=== PATIENT | female | born 1990 | race Caucasian/White ===

== ENCOUNTER 2023-05-10 13:45 | Outpatient (CLI) | payer BC, SELFPAY | END 2023-05-10 13:46 | disposition home or self-care (01) | LOC: LONREF 13:46 | PROVIDERS: PCP Family Medicine; Visit Provider Obstetrics & Gynecology | DX: Z01.419 Encounter for gynecological examination (general) (routine) without abnormal findings (principal); R53.83 Other fatigue | CPT/HCPCS: 83520; 84443 ==

== ENCOUNTER 2023-07-12 17:04 | Outpatient (CLI) | payer BC, SELFPAY | END 2023-07-12 17:05 | disposition home or self-care (01) | LOC: NFLDREF 07-15 13:48 | PROVIDERS: PCP Family Medicine; Referring Provider Family Medicine; Visit Provider Nurse Practitioner Family | DX: R30.0 Dysuria (principal); Z20.2 Contact with and (suspected) exposure to infections with a predominantly sexual mode of transmission | CPT/HCPCS: 87491; 87591 ==

== ENCOUNTER 2023-10-11 09:52 | Emergency (ER) | payer BC, SELFPAY ==
[2023-10-11] VITALS (19 sets, daily range): BP systolic 116–135; BP diastolic 86–96; PULSE 85–101; RESP 18; TEMP 36.4; O2SAT 97–100; BMI 25.5
--- NOTE | 2023-10-11 10:23 | ED.ABDPAIN ---
HPI - Abdominal Pain General Time Seen by Provider: 10:23 Date Seen: 10/11/23 Chief Complaint: Abdominal Pain Stated Complaint: Back/abdominal pain Time Seen by Provider: 10/11/23 10:22 Source: patient and RN notes reviewed Mode of arrival: ambulatory Limitations: no limitations History of Present Illness HPI narrative: This 32-year-old female was referred by clinic to the ER for epigastric pain. This pain has been intermittent for about 2 months, has been present now since last night however. She notes that the pain does radiate to her back. The pain has persisted since about 9:00 a.m. last night. Alcohol use to make her symptoms worse, quit drinking alcohol about 2 weeks ago. She did eat dinner last night at 6:00 p.m., had nausea and vomiting about 730 last night. Denies any heartburn or reflux symptoms to me, states her gallbladder is gone. She has an IUD in. She has had no diarrhea, no constipation, no dark tarry stools or blood in stools. This pain is the worst that she has had thus far. She tried some ibuprofen around 6:00 a.m.. MD elicited complaint: abdominal pain Related Data Hx Last Menstrual Period: Has IUD in place Patient : No Home Medications Medication Instructions Recorded Confirmed Vitamin D PO 11/28/22 07/12/23 clonidine HCl 0.1 mg tablet 0.1 mg PO QPM 07/12/23 07/12/23 levomilnacipran 20 mg capsule,24 20 mg PO DAILY 07/12/23 07/12/23 hr,extended release (Fetzima) Previous Rx's Medication Instructions Recorded sertraline 100 mg tablet 100 mg PO QDAY #90 tabs 11/28/22 valacyclovir 1 gram tablet 1,000 mg PO QDAY #90 tabs 05/10/23 sertraline 50 mg tablet 50 mg PO QDAY #90 tabs 05/18/23 trazodone 50 mg tablet 50 mg PO QDAY #90 tabs 05/18/23 cefixime 400 mg capsule 800 mg (2 x 400 mg) PO ONCE #2 caps 07/12/23 omeprazole 40 mg capsule,delayed 40 mg PO DAILY #14 caps 10/11/23 release ondansetron 4 mg disintegrating 4 mg PO Q6H PRN nausea and 10/11/23 tablet vomiting #20 tabs Allergies Allergy/AdvReac Type Severity Reaction Status Date / Time No Known Drug Allergies Allergy Verified 07/12/23 16:53 Review of Systems Status of ROS Reports: 6 or more systems reviewed and unremarkable except as noted in History and below [facility] Medical History History of vaginal delivery Vitamin D deficiency ?E55.9 - Vitamin D deficiency, unspecified (ICD-10) Surgical History History of wisdom tooth extraction ?K08.409 - Partial loss of teeth, unspecified cause, unspecified class (ICD-10) Status post cholecystectomy (2020) ?Z90.49 - Acquired absence of other specified parts of digestive tract (ICD-10) Status post adenoidectomy ?Z90.89 - Acquired absence of other organs (ICD-10) History of tympanostomy tube placement ?Z96.22 - Myringotomy tube(s) status (ICD-10) Family History Mother High cholesterol Diabetes High blood pressure Grandmother DVT (deep venous thrombosis) Other Alzheimers disease Social History Narrative: Occupation: Respite care, foster caregiver Highest level of school completed/degree received: high school graduate Smoking Status: Never smoker Do you use any of these nicotine containing products: None Second hand tobacco smoke exposure: No How often do you have a drink containing alcohol: monthly or less How many standard drinks containing alcohol do you have on a typical day: 1 or 2 How often do you have six or more drinks on one occasion: Never AUDIT-C Alcohol total score: 1 Non-prescribed substance use: denies use Little interest or pleasure in doing things: nearly every day Feeling down, depressed, or hopeless: more than half the days Do you think of yourself as: straight/heterosexual Gender Identity: female Are you currently sexually active: Yes Are you using contraception or practicing any form of control: Yes service: No Exam Const: Vital Signs, click to edit/add: Vital Signs - 24 hr 10/11/23 10:04 10/11/23 10:18 10/11/23 10:30 Temperature 97.6 F Pulse Rate 101 H 98 Pulse Rate [Pulse Oximeter] 95 Respiratory Rate 18 Blood Pressure Blood Pressure [Ri ght Upper Arm] 135/96 H Pulse Oximetry 99 99 98 Oxygen Delivery Me thod Room Air 10/11/23 10:31 Temperature Pulse Rate 101 H Pulse Rate [Pulse Oximeter] Respiratory Rate Blood Pressure 122/94 H Blood Pressure [Ri ght Upper Arm] Pulse Oximetry 99 Oxygen Delivery Me thod This 32-year-old female who is alert, interactive, no apparent distress but looks like she does not feel well. Symmetrical facial function, sclera clear, normal conjugate gaze. Able to speak in complete sentences. Sits up easily, lungs are clear, good air entry, no wheezing or crackles. CV regular rate and rhythm, no murmur, normal S1-S2, no S3-S4. Abdomen is soft, normal bowel sounds but does have epigastric abdominal pain. I feel no organomegaly or masses, she has no rebound or guarding at this time. She was ambulatory into the ED of her own accord. Skin visualized without any rash, note no jaundice. Documenting provider has reviewed patient's vital signs: yes Course Course ED Course: Patient has epigastric abdominal pain. Differential certainly could be pancreatitis, ulcer, gastric or duodenal issues. Doubtful that she has any small bowel obstruction as she has had no recurrent nausea or vomiting. Will obtain CT of her abdomen and pelvis, obtain full complement of labs. Will initiate a L of IV fluids, 4 mg IV Zofran, 15 mg IV Toradol for pain but will also give her 40 mg IV Protonix. Doubtful based on clinical examination that she has an acute surgical abdomen but CT imaging in the labs will certainly help differentiate any process. Reevaluation(s) Time of Reevaluation #1: 12:08 Reevaluation #1: Have reviewed with patient her CT findings and her lab reports. She is feeling better after the medications given. She does admit that she will intermittently sometimes have diarrhea after her gallbladder being out. We did discuss the findings of the liquid in the colon. It is possible that she has a new gastroenteritis given the small bowel findings on the CT, mild elevated liver enzymes. She is aware that I did send off an acute viral hepatitis panel. As far as drinking, she did not drink much, just socially. Thus, doubt the liver enzymes are attributed to from alcohol. Did review the incidental finding in the left urinary system with her, she will need outpatient follow-up with Urology. Urinalysis is showing no evidence of infection. Consultations Consultation #1: Did briefly review this case with our surgeon on-call Dr. Harrison. We did discuss the possibility of a de Karina common bile duct stone but there is no evidence of any dilation on the CT. She agrees with doing the viral hepatitis panel. It is possible that this is just a gastroenteritis with a mild bump in the liver enzymes from the virus. Will talk to patient further about quantifying her alcohol use. At this time, if patient is feeling better, there is no strong inclination to do an MRCP to look for a common bile duct stone. If patient were worsening or having increased liver enzyme changes, this may need to be considered. Will re-evaluate patient at this time, contact surgeon back if needed. Time: 11:44 Vital Signs Vital signs: Initial Vital Signs Temperature 97.6 F 10/11/23 10:04 Temperature Source Temporal Artery Scan 10/11/23 10:04 Pulse Rate 95 10/11/23 10:04 Pulse Rhythm Regular 10/11/23 10:04 Respiratory Rate 18 10/11/23 10:04 Blood Pressure 135/96 H 10/11/23 10:04 Blood Pressure Mean 109 H 10/11/23 10:04 Blood Pressure Position Supine 10/11/23 10:04 Pulse Oximetry 99 10/11/23 10:04 Oxygen Delivery Method Room Air 10/11/23 10:04 Vital Signs Temperature 97.6 F 10/11/23 10:04 Pulse Rate 95 10/11/23 10:04 Respiratory Rate 18 10/11/23 10:04 Blood Pressure 135/96 H 10/11/23 10:04 Pulse Oximetry 99 10/11/23 10:04 Oxygen Delivery Method Room Air 10/11/23 10:04 Temperature 97.6 F 10/11/23 10:04 Pulse Rate 101 H 10/11/23 10:31 Respiratory Rate 18 10/11/23 10:04 Blood Pressure 122/94 H 10/11/23 10:31 Pulse Oximetry 99 10/11/23 10:31 Oxygen Delivery Method Room Air 10/11/23 10:04 Medications Administered Medications: Generic Name Dose Route Start Last Admin Trade Name Freq PRN Reason Stop Dose Admin Sodium Chloride 1,000 mls @ 500 mls/hr 10/11/23 10:29 10/11/23 11:04 0.9 % Sodium Chloride 1000 Ml IV 10/11/23 12:28 500 mls/hr .Q2H JLUIS Administration Discontinued Medications Generic Name Dose Route Start Last Admin Trade Name Freq PRN Reason Stop Dose Admin Ketorolac Tromethamine 15 mg 10/11/23 10:10/11/23 11:11 Ketorolac 15 Mg/Ml Inj IVP 10/11/23 10:30 15 mg ONCE ONE Administration Ondansetron HCl 4 mg 10/11/23 10:29 10/11/23 11:07 Ondansetron 2 Mg/Ml Inj IVP 10/11/23 10:30 4 mg ONCE ONE Administration Pantoprazole Sodium 40 mg 10/11/23 10:10/11/23 11:08 Pantoprazole Sodium 40 Mg Inj IVP 10/11/23 10:30 40 mg ONCE ONE Administration MDM - Abdominal Pain Lab Data Attestation: I reviewed the patient's lab results. Labs: Lab Results 10/11/23 10/11/23 10/11/23 Range/Units 10:35 11:36 11:50 WBC 8.35 (4.50-11.00) K/uL RBC 4.47 (4.00-5.20) m/uL Hgb 13.9 (12.0-16.0) gm/dL Hct 40.9 (33.0-51.0) % MCV 92 (80-100) fL MCH 31 (26-34) pg MCHC 34 (32-36) gm/dL RDW Coeff of [place] 11.0 L (11.5-15.5) % Plt Count 270 (140-440) K/uL Neut % (Auto) 80.8 H (42.0-72.0) % Lymph % (Auto) 12.2 L (20-44) % Young % (Auto) 5.5 (0.0-11.0) % Eos % (Auto) 0.5 (0.0-7.0) % Baso % (Auto) 0.2 (0.0-3.0) % Neut # (Auto) 6.70 (1.7-7.0) K/uL Lymph # (Auto) 1.00 (0.90-2.90) K/uL Young # (Auto) 0.50 (0.00-0.90) K/UL Eos # (Auto) 0.04 (0.00-0.50) K/uL Baso # (Auto) 0.02 (0.00-0.30) K/uL Abs Immat Gran (auto) 0.07 (0.00-0.30) K/uL Imm/Tot Granulo (auto) 0.8 % Sodium 136 (135-149) mmol/L Potassium 4.2 (3.6-5.1) mmol/L Chloride 103 (96-114) mmol/L Carbon Dioxide 25 (20-32) mmol/L Anion Gap 8 (7-15) mEq/L BUN 10 (5-24) mg/dL Creatinine 0.7 (0.5-1.5) mg/dL Estimated Creat Clear 85.45 Estimated GFR 116 ml/min Glucose 99 (60-115) mg/dL Lactate 0.7 (0.5-1.9) mmol/L Calcium 9.2 (8.4-10.6) mg/dL Total Bilirubin 1.8 H (0.1-1.5) mg/dL Direct Bilirubin 0.5 (0.0-0.5) mg/dL AST 241 H (12-35) U/L ALT 133 H (4-35) U/L Alkaline Phosphatase 215 H (40-150) U/L C-Reactive Protein 0.9 (0.5-1.0) mg/dL Total Protein 7.9 (6.0-8.3) g/dL Albumin 4.6 (3.3-5.0) g/dL Lipase 35 (23-300) U/L HCG, Qual Negative (Negative) Urine Color Yellow (Yellow) Urine Appearance Clear (Clear) Urine pH 7.0 (5.0-8.5) Ur Specific [place] 1.010 (1.000-1.030) Urine Protein Negative (Negative) Urine Glucose (UA) Negative (Negative) Urine Ketones Negative (Negative) Urine Blood Negative (Negative) Urine Nitrite Negative (Negative) Urine Bilirubin Negative (Negative) Urine Urobilinogen 1.0 (0.2-1.0) Ur Leukocyte Esterase Negative (Negative) Urine RBC 0-2 (0-2) Urine WBC 0-2 (0-5) Ur Squamous Epith Cells Few (None-Few) Urine Bacteria Few A (None) Ethyl Alcohol < 0.01 L (0.01-0.03) % Lab Acknowledgement Test Added Imaging Data CT scan - abdomen: Attestation: I have reviewed the pertinent imaging results. Radiologist's impression: Patient: MARTHA GARCIA Facility:?[facility] Patient ID:?[id number] Site Patient ID:?[id number]. Site :?[id number] Study:?CT Abdomen/Pelvis w/ 66cc [id number] 11:01:49 AM Ordering Physician:?Kenia Byrd Final Report: INDICATION: Epigastric pain. Nausea and vomiting. TECHNIQUE: Axial images were obtained from the diaphragm to the pubic symphysis. Reformats were obtained in the coronal and sagittal plane. IV Contrast: 66 cc Isovue 370 Oral Contrast: None COMPARISON: None. FINDINGS: Lower chest: Unremarkable. Liver: Unremarkable. Normal in size and attenuation. No masses. Gallbladder and bile ducts: Status post cholecystectomy. Spleen: Unremarkable. Normal in size without mass. Pancreas: Unremarkable. No mass or inflammation. Adrenal glands: Unremarkable. No nodules. Kidneys: Slightly delayed nephrogram on the left with modest pelvocaliectasis. Left ureter decompressed. No nephrolithiasis. Vasculature: Unremarkable. GI tract: Stomach is decompressed. Slight fold thickening questioned within loops of small bowel in the left abdomen. Fluid noted within the colon. Pelvis: Anteverted uterus with intrauterine device. Trace free fluid in the pelvis. Bones: Unremarkable for age. IMPRESSION: 1. Slight fold thickening questioned within loops of small bowel in the left abdomen suggesting an enteritis. Fluid within the colon which can be seen in a diarrheal illness. 2. Slightly delayed nephrogram on the left with cystic areas in the left renal pelvis. Appearance favors mild left pelvocaliectasis and mild underlying left UPJ stenosis. Differential diagnosis includes prominent peripelvic cysts. Please note that all CT scans at this facility use dose modulation, iterative reconstruction, and/or weight-based dosing when appropriate to reduce radiation dose to as low as reasonably achievable. Dictated by Eric Doyle MD @ 10/11/2023 11:16:41 AM (Electronic Signature) Core Measures AMI core measures followed: No Discharge Plan Discharge Clinical Impression: Enteritis, Elevated liver enzymes, Abnormal abdominal CT scan, Acute epigastric pain Patient Disposition: Home, Self-Care Condition: Stable Instructions: Gastroenteritis (ED), Enteritis (ED) Additional Instructions: Use omeprazole daily for the next 1-2 weeks. Can use Zofran for recurrent nausea. If you are having significant increase in nausea, or vomiting through use of Zofran, do recommend re-evaluation in the interim. Recommend sticking to clear liquids for the next 24-48 hours. You may develop some diarrhea but if you note blood in your diarrhea or have significant increased abdominal pain, abdominal pain associated with fever, do recommend re-evaluation in the interim. Otherwise, need to follow up in clinic next week. Your liver enzymes need to be re-evaluated, recommend referral to Urology for the incidental abnormality noted on the CT scan in the left urinary system. Please bring a copy of the CT report as well as your liver enzyme levels from the ED to that follow-up with your primary care provider next week. You may resume a normal diet as you feel better. We will let you know if the acute hepatitis viral panel would be positive for anything. The working hypothesis is that you have a probable gastroenteritis which is causing a mild elevation in the liver enzymes, we do see this. It is important to make sure that the liver enzymes are coming back to normal to ensure no underlying development of other disease process. If the liver enzymes do continue to be elevated, may need further laboratory studies done as well as possible GI consultation. Activity Level: Activity as Tolerated Prescriptions: New ondansetron 4 mg tablet,disintegrating 4 mg PO Q6H PRN (Reason: nausea and vomiting) Qty: 20 0RF omeprazole 40 mg capsule,delayed release(DR/EC) 40 mg PO DAILY Qty: 14 0RF No Action Vitamin D PO Patient Comments: Pt is unsure of dose. sertraline 100 mg tablet 100 mg PO QDAY Qty: 90 3RF valacyclovir 1 gram tablet 1,000 mg PO QDAY Qty: 90 3RF clonidine HCl 0.1 mg tablet 0.1 mg PO QPM Fetzima 20 mg capsule,extended release 24 hr 20 mg PO DAILY cefixime 400 mg capsule 800 mg PO ONCE Qty: 2 0RF sertraline 50 mg tablet 50 mg PO QDAY Qty: 90 3RF trazodone 50 mg tablet 50 mg PO QDAY Qty: 90 3RF Follow Up/Referrals: Jeovany Capps MD [Primary Care Provider] - Stand Alone Forms: [employer] Info Instructions
--- NOTE | 2023-10-11 10:30 | CRLHL7_ITS ---
For Patients: As a result of the Century Cures Act, medical imaging exams and procedure reports are released immediately into your electronic medical record. You may view this report before your referring provider. If you have questions, please contact your health care provider. INDICATION: Epigastric pain. Nausea and vomiting. TECHNIQUE: Axial images were obtained from the diaphragm to the pubic symphysis. Reformats were obtained in the coronal and sagittal plane. IV Contrast: 66 cc Isovue 370 Oral Contrast: None COMPARISON: None. FINDINGS: Lower chest: Unremarkable. Liver: Unremarkable. Normal in size and attenuation. No masses. Gallbladder and bile ducts: Status post cholecystectomy. Spleen: Unremarkable. Normal in size without mass. Pancreas: Unremarkable. No mass or inflammation. Adrenal glands: Unremarkable. No nodules. Kidneys: Slightly delayed nephrogram on the left with modest pelvocaliectasis. Left ureter decompressed. No nephrolithiasis. Vasculature: Unremarkable. GI tract: Stomach is decompressed. Slight fold thickening questioned within loops of small bowel in the left abdomen. Fluid noted within the colon. Pelvis: Anteverted uterus with intrauterine device. Trace free fluid in the pelvis. Bones: Unremarkable for age. IMPRESSION: 1. Slight fold thickening questioned within loops of small bowel in the left abdomen suggesting an enteritis. Fluid within the colon which can be seen in a diarrheal illness. 2. Slightly delayed nephrogram on the left with cystic areas in the left renal pelvis. Appearance favors mild left pelvocaliectasis and mild underlying left UPJ stenosis. Differential diagnosis includes prominent peripelvic cysts. Please note that all CT scans at this facility use dose modulation, iterative reconstruction, and/or weight-based dosing when appropriate to reduce radiation dose to as low as reasonably achievable. Dictated by Eric Doyle MD @ 10/11/2023 11:16:41 AM (Electronically Signed)
[2023-10-11 10:45] LABS: Basophils Absolute Auto 0.02 K/uL (0.00-0.30); Basophils Percent Auto 0.2 % (0.0-3.0); Eosinophils Absolute Auto 0.04 K/uL (0.00-0.50); Eosinophils Percent Auto 0.5 % (0.0-7.0); Hematocrit 40.9 % (33.0-51.0); Hemoglobin* 13.9 gm/dL (12.0-16.0); Immature Granulocytes Abs Auto 0.07 K/uL (0.00-0.30); Immature Granulocytes Pct Auto 0.8 %; Lymphocytes Percent Auto 12.2 % (20-44); Mean Corpuscular HGB Conc 34 gm/dL (32-36); Mean Corpuscular Hemoglobin 31 pg (26-34); Mean Corpuscular Volume 92 fL (80-100); Monocytes Percent Auto 5.5 % (0.0-11.0); Neutrophils Percent Auto 80.8 % (42.0-72.0); Platelet Count* 270 K/uL (140-440); Red Blood Count 4.47 m/uL (4.00-5.20); White Blood Count* 8.35 K/uL (4.50-11.00)
[2023-10-11 10:46] LABS: Lactate* 0.7 mmol/L (0.5-1.9)
[2023-10-11 10:51] LABS: Slide Review Reflex No
[2023-10-11 11:03] LABS: Albumin* 4.6 g/dL (3.3-5.0); Chloride* 103 mmol/L (96-114)
[2023-10-11 11:04] LABS: HCG Qualitative Serum* Negative (Negative); Potassium* 4.2 mmol/L (3.6-5.1); Sodium* 136 mmol/L (135-149)
[2023-10-11] MEDS: 0.9 % SODIUM CHLORIDE 1000 ml 1,000 ML 500 ML IV (11:04)
[2023-10-11 11:06] LABS: Creatinine* 0.7 mg/dL (0.5-1.5); Est. Creatinine Clearance* 85.45; Estimated Glomerular Filt Rate 116 ml/min
[2023-10-11 11:07] LABS: Alanine Aminotransferase* 133 U/L (4-35); Alkaline Phosphatase* 215 U/L (40-150); Anion Gap 8 mEq/L (7-15); Aspartate Amino Transferase* 241 U/L (12-35); Bilirubin Direct* 0.5 mg/dL (0.0-0.5); Bilirubin Total* 1.8 mg/dL (0.1-1.5); Blood Urea Nitrogen* 10 mg/dL (5-24); Calcium* 9.2 mg/dL (8.4-10.6); Carbon Dioxide* 25 mmol/L (20-32); Glucose* 99 mg/dL (60-115); Lipase* 35 U/L (23-300); Total Protein* 7.9 g/dL (6.0-8.3)
[2023-10-11] MEDS: ONDANSETRON 2 MG/ML inj 4 MG IVP (11:07)
[2023-10-11] MEDS: PANTOPRAZOLE SODIUM 40 MG INJ IVP (11:08)
[2023-10-11 11:09] LABS: C Reactive Protein* 0.9 mg/dL (0.5-1.0); Ethanol* < 0.01 % (0.01-0.03)
[2023-10-11] MEDS: KETOROLAC 15 MG/ML inj IVP (11:11)
[2023-10-11 11:50] LABS: Appearance Urine Clear (Clear); Bilirubin Urine Negative (Negative); Blood Urine Negative (Negative); Color Urine Yellow (Yellow); Glucose Urine Negative (Negative); Ketones Urine Negative (Negative); Leukocyte Esterase Urine Negative (Negative); Nitrite Urine Negative (Negative); Protein Urine Negative (Negative)
[2023-10-11 11:55] LABS: Bacteria Urine Few; RBC Urine 0-2 (0-2); Squamous Epithelial Cell Urine Few (None-Few); WBC Urine 0-2 (0-5)
[2023-10-13 12:25] LABS: Hep A Ab, IgM Negative (Negative); Hep B Core Ab, IgM Negative (Negative); Hep B Surface Antigen Negative (Negative); Hep C Ab by CIA Index 0.14 IV; Hep C Ab by CIA Interp Negative (Negative)
== END 2023-10-11 12:53 | disposition home or self-care (01) ==
PROVIDERS: Emergency Provider Family Medicine; PCP Family Medicine
DX: K52.9 Noninfective gastroenteritis and colitis, unspecified (principal); R93.89 Abnormal findings on diagnostic imaging of other specified body structures; R74.01 Elevation of levels of liver transaminase levels
CPT/HCPCS: 36415; 74177; 80053; 80074; 81001; 82077; 82248; 83605; 83690; 84703; 85025; 86140; 87086; 96374; 96375; 99284; 99285; C9113; J1885; J2405; J7030; Q9967

== ENCOUNTER 2023-10-16 13:30 | Outpatient (CLI) | payer BC, SELFPAY | END 2023-10-16 13:31 | disposition home or self-care (01) | LOC: LKVREF 13:34 | PROVIDERS: PCP Family Medicine; Visit Provider Family Medicine | DX: R74.8 Abnormal levels of other serum enzymes (principal) | CPT/HCPCS: 80076 ==

== ENCOUNTER 2023-11-28 13:51 | Outpatient (CLI) | payer BC, SELFPAY ==
--- NOTE | 2023-11-28 14:00 | NM_ITS ---
Patient: MARTHA GARCIA Facility:?[facility] Patient ID:?[id number] Site Patient ID:?[id number]. Site :?1990 Study:?NM-Chest/Abd/Pelvis Procedure Renogram w/ Ana Luisa-11/28/2023 4:09:33 PM Ordering Physician:EUGENE LANGLEY Final Report: Indication: Left hydronephrosis Technique: Patient was injected with 10.5 mCi [id number] and underwent routine renal scintigraphic examination. 20 minutes into the examination, patient received 20 milligrams furosemide IV. Comparison: None Findings: Flow phase: Appropriate and symmetric flow phase examination bilaterally. Uptake phase: The bilateral kidneys show rapid uptake with a sharp peak of activity. Excretory phase: The bilateral kidneys demonstrate significant spontaneous excretion. At the time of diuresis, there was minimal residual radiotracer within the bilateral collecting systems. Postvoid: Essentially complete emptying bilaterally. Split differential: 51.3% left, 48.7% right. T1/2 diuresis: Could not be calculated due to spontaneous excretion. Subjective: Symmetric flow, uptake, and expiratory phase examination with no evidence of collecting system dilation or asymmetry of radiotracer clearance. Impression: Normal renal scan. Dictated by García Acevedo MD @ 12/02/2023 1:55:02 AM Signed by:?García Acevedo MD @12/02/2023 1:55:02 AM (Electronic Signature)
== END 2023-11-28 13:52 | disposition home or self-care (01) ==
LOC: NM 13:51
PROVIDERS: PCP Family Medicine; Visit Provider Urology
DX: N13.30 Unspecified hydronephrosis (principal)
CPT/HCPCS: 78708; A9562; J1940

== ENCOUNTER 2024-03-06 16:47 | Outpatient (CLI) | payer BC, SELFPAY ==
--- OUTSIDE RECORDS SUMMARY | 2024-03-10 17:49 | XMS_ITS | Data Portability ---
Author Organization [facility], [facility] Address [address] [place] [address] Care Team Providers Care Territory Supervisor Name Role Phone [facility] Primary Care Provider [phone] Assessment No assessment recorded. Plan of Treatment Reminders Order Date Submit Date Provider Last Modified By Organization Details Last Modified Time Details Appointments None recorded . Lab None recorded . Referral None recorded . Procedures None recorded . Surgeries None recorded . Imaging NM, kidney scan, w/ vascular flow + function , single, w/o pharma interven tion - with Lasix 2023 024 [facility] Radiology Department, [address] [place], [address], 09:10:21 Medication Orders None recorded . Patient TargetsNo targets recorded. Patient InstructionsNo instructions recorded. Reason for Referral None Reported. Results Created Date Observation Date Name Description Value Unit Range Abnormal Flag LastModifiedBy Organization Detail LastModifiedTime 12/03/19 24 11/28/2023 NM, kidne y scan, w/ vascu lar flow + funct ion, singl e, w/o pharm a inter venti on No observ ation record ed. [email or web address] [facility] Radiology Department [address] [place], [address], 12/09/2023 17:09:37 Result Notes None recorded. Procedures Surgical History Date Name Laterality Status Provider Name and Address Organization Details Recorded Time procedure on gallbladder completed Dov Huff MD [address], [place], [address], [facility] 11/07/2023 16:09:33 adenomyomectomy completed Dov Huff MD [address], [place], [address], [facility] 11/07/2023 16:09:37 Imaging Results Imaging Date Name Status LastModified by Organization Details LastModified Time 11/28/2023 NM, kidney scan, w/ vascular flow + function, single, w/o pharma intervention completed [email or web address] [facility] Radiology Department [address] [place], [address], 12/09/2023 17:09:37 Procedure Notes None recorded. Medical Equipment None Reported. Allergies No known drug allergies Medications Name Sig Start Date Stop Date Status Note LastModified by Organization Details LastModified Time amoxicillin 500 mg capsule TAKE 1 CAPSULE BY MOUTH EVERY 8 HOURS UNTIL ALL TAKEN 11/07 completed Not Available Not Available Not Available clonidine HCl 0.1 mg tablet TAKE 1 TABLET BY MOUTH TWICE DAILY active Not Available Not Available No t Available trazodone 50 mg tablet TAKE 1 TABLET BY MOUTH EVERY DAY 11/07 completed Not Available Not Available Not Available ibuprofen 800 mg tablet TAKE 1 TABLET BY MOUTH EVERY 8 HOURS NEEDED FOR PAIN CONTROL 11/07 completed Not Available Not Available Not Available valacyclovi r 1 gram tablet TAKE 1 TABLET BY MOUTH EVERY DAY 11/07 completed Not Available Not Available Not Available clonazepam 0.5 mg tablet TAKE 1 TABLET BY MOUTH DIRECTED PER PROVIDER 11/07 completed Not Available Not Available Not Available sertraline 100 mg tablet TAKE 1 TABLET BY MOUTH EVERY DAY 11/07 completed Not Available Not Available Not Available metronidazo le 500 mg tablet TAKE 1 TABLET BY MOUTH TWICE DAILY FOR 7 DAYS 11/07 completed Not Available Not Available Not Available acetaminoph en 300 mg-codeine 30 mg tablet TAKE 1 - 2 TABLET BY MOUTH EVERY 4 - 6 HOURS NEEDED FOR PAIN 11/07 completed Not Available Not Available Not Available omeprazole 40 mg capsule,del ayed release TAKE 1 CAPSULE BY MOUTH DAILY 11/07 completed Not Available Not Available Not Available trazodone 100 mg tablet TAKE 1 TABLET BY MOUTH EVERY NIGHT active Not Available Not Available No t Available ondansetron 4 mg disintegrat ing tablet DISSOLVE 1 TABLET ON THE TONGUE EVERY 6 HOURS NEEDED FOR NAUSEA OR VOMITING 11/07 completed Not Available Not Available Not Available sertraline 50 mg tablet TAKE 1 TABLET BY MOUTH EVERY DAY 11/07 completed Not Available Not Available Not Available doxycycline hyclate 100 mg tablet TAKE 1 TABLET BY MOUTH TWICE DAILY FOR 7 DAYS 11/07 completed Not Available Not Available Not Available Fetzima 20 mg capsule,ext ended release TAKE 1 CAPSULE BY MOUTH DAILY 11/07 completed Not Available Not Available Not Available Fetzima 80 mg capsule,ext ended release TAKE 1 CAPSULE BY MOUTH DAILY active Not Available Not Available No t Available Vitals Date Recorded Body height Body mass index (BMI) Body weight Provider Name and Address Organization Details Last Updated DateTime 11/07/2023 154.94 cm 25.5 kg/m2 35881.97 g Dov Huff MD [address] [place] [address],[address] [id number] [place] [address] Urology 11/07/2023 16:07:16 Social History Question Answer Notes LastModified by Organizat ion Details LastModified Time Tobacco Smoking Status Never Smoker Dov Huff MD [address] [place] [address],[address], [address], [facility] 11/07/2023 16:08:54 What Is Your Level Of Alcohol Consumption? Occasional Information not available 11/07/2023 What Is Your Level Of Caffeine Consumption? Moderate Information not available 11/07/2023 What Was The Date Of Your Most Recent Tobacco Screening? 11/07/2023 Information not available 11/07/2023 Sex: Female Functional Status None recorded. Mental Status None recorded. Family History Relationship Description Onset Age of this Age Resolved Age Notes Father No current problems or disability Mother No current problems or disability Medical History Condition Response Other N High Blood Pressure N Kidney Stones N Depression N Sexually Transmitted Infection N Cancer N Bleeding Disorder N Lung Disease N GERD/Acid Reflux N High Cholesterol N Diabetes N Heart Disease N Gynecological HistoryNo gynecological history recorded. Obstetrics History GPAL:G 0 P 0 0 0 0 Immunizations Vaccine Type Date Status Provider Name and Address Organization Details Recorded Time Hib, unspecified formulation 08/11/1991 completed Dov Huff MD [address] [place] [address],[address], [address], [facility] 11/07/2023 16:07:21 MMR 12/03/2000 completed Dov Huff MD [address] [place] [address],[address], [place], [address], [facility] 11/07/2023 16:07:21 MMR 01/31/1990 completed Dov Huff MD [address] [place] [address],[address], [place], [address], [facility] 11/07/2023 16:07:21 Tdap 05/10/2023 completed Dov Huff MD [address] [place] [address],[address], [place], [address], [facility] 11/07/2023 16:07:21 Hep B, unspecified formulation 11/25/2000 completed Dov Huff MD [address] [place] [address],[address], [place], [address], [facility] 11/07/2023 16:07:21 Hep B, unspecified formulation 05/16/2000 completed Dov Huff MD [address] [place] [address],[address], [place], [address], [facility] 11/07/2023 16:07:21 Hep B, unspecified formulation 07/05/2000 completed Dov Huff MD [address] [place] [address],[address], [place], [address], [facility] 11/07/2023 16:07:21 polio, unspecified formulation 12/13/1993 completed Dov Huff MD [address] [place] [address],[address], [place], [address], [facility] 11/07/2023 16:07:21 polio, unspecified formulation 01/09/1989 completed Dov Huff MD [address] [place] [address],[address], [place], [address], [facility] 11/07/2023 16:07:21 polio, unspecified formulation 03/03/1989 completed Dov Huff MD [address] [place] [address],[address], [place], [address], [facility] 11/07/2023 16:07:21 polio, unspecified formulation 08/06/1990 completed Dov Huff MD [address] [place] [address],[address], [place], [address], [facility] 11/07/2023 16:07:21 Td (adult), 2 Lf tetanus toxoid, preservative free, adsorbed 02/28/2004 completed Dov Huff MD [address] [place] [address],[address] [facility] [place] [place], [address], [facility] 11/07/2023 16:07:21 DTaP 12/14/1993 completed Dov Huff MD [address] [place] [address],[address], [place], [address], [facility] 11/07/2023 16:07:21 DTaP 01/09/1989 completed Dov Huff MD [address] [place] [address],[address], [address], [facility] 11/07/2023 16:07:21 DTaP 03/03/1989 completed Dov Huff MD [address] [place] [address],[address], [address], [facility] 11/07/2023 16:07:21 DTaP 05/20/1989 completed Dov Huff MD [address] [place] [address],[address], [address], [facility] 11/07/2023 16:07:21 DTaP 08/06/1990 completed Dov Huff MD [address] [place] [address],[address] [place] [address], [address], [facility] 11/07/2023 16:07:21 Past Encounters Encounter ID Performer Location Encounter Start Date Encounter Closed Date Diagnosis/Indication Diagnosis SNOMED-CT Code [id number] Dov Huff MD [facility] [address] [place] [id number] 11/07/2023 16:00:56 11/13/2023 11:21:43 Hydronephrosis [id number] Health Concerns Section Related Observation LastModified by Organization Detai ls LastModified Time None Recorded Concern Status LastModified by Organization Details LastModified Time None Recorded Advance Directives Directive None Recorded Payers Encounter Date Sequence Insurance Name Policy Number Policy Tovar Covered Member ID Tovar Member ID Guarantor Name 11/07/2023 1 [facility] [id number] Mary Guerin John [id number] Mary John Notes Date Note Type Note Provider Name and Address Organization Details Recorded Time 11/07/2023 text/html HPI Notes: She was having upper abdominal pains and a CT showed mild left hydro. The pain was midline, epigastric and projected through to her back. She had a cholecystectomy. Her pains were similar then. Dov Huff MD [address] [place] [address],[address], [place], [address], [facility] 11/07/2023 16:40:19 OBGyn Episode No OBEpisode recorded.
== END 2024-03-06 16:48 | disposition home or self-care (01) ==
LOC: NFLDREF 03-10 17:47
PROVIDERS: PCP Family Medicine; Referring Provider Family Medicine; Visit Provider Physician Assistant
DX: R07.9 Chest pain, unspecified (principal)
CPT/HCPCS: 84484

== ENCOUNTER 2024-05-05 19:38 | Outpatient (CLI) | payer BC, SELFPAY | END 2024-05-05 19:39 | disposition home or self-care (01) | LOC: LKVREF 19:39 | PROVIDERS: PCP Family Medicine; Visit Provider Emergency Medicine | DX: R07.9 Chest pain, unspecified (principal) | CPT/HCPCS: 86140 ==

== ENCOUNTER 2024-08-07 09:44 | Outpatient (CLI) | payer BC, SELFPAY ==
[2024-08-07 14:11] LABS: Chlamydia DNA Amplified* NOT DETECTED (No Detected); GC DNA Amplified* NOT DETECTED (No Detected)
== END 2024-08-07 09:45 | disposition home or self-care (01) ==
LOC: NFLDREF 09:45
PROVIDERS: PCP Family Medicine; Visit Provider Obstetrics & Gynecology
DX: Z01.419 Encounter for gynecological examination (general) (routine) without abnormal findings (principal); N89.8 Other specified noninflammatory disorders of vagina
CPT/HCPCS: 87491; 87591

== ENCOUNTER 2025-09-14 15:21 | Outpatient (CLI) | payer BC, SELFPAY ==
[2025-09-17 01:13] LABS: HPV Source Cervix
[2025-09-17 06:42] LABS: HPV Genotype 16 by TMA Not Detected; HPV Genotype 18/45 by TMA Not Detected
[2025-09-20 13:50] LABS: Pap Test Digital Imaging Done; Pap Test Reviewed by Pathologi Done
== END 2025-09-14 15:22 | disposition home or self-care (01) ==
PROVIDERS: PCP Family Medicine; Visit Provider Obstetrics & Gynecology
DX: Z12.4 Encounter for screening for malignant neoplasm of cervix (principal)
CPT/HCPCS: 87624; 87625; 88141; 88142; 88175